=== PATIENT | female | born 1960 | race Caucasian/White ===

== ENCOUNTER → 2019-10-03 13:23 | Outpatient (CLI) | payer BC, SELFPAY ==
--- NOTE | ~2019-10-03 | MR_ITS ---
EXAMINATION: MR wrist LT wo con DATE: 10/03/2019 14:29 INDICATION: Dorsal ganglion cyst at the right wrist TECHNIQUE: Magnetic resonance imaging (MRI) of the right wrist was performed without intravenous cont rast. Sequences performed include axial PD-weighted FSE and PD-weighted FS FSE, coronal PD-weighted F S FSE and T1-weighted SE, and sagittal PD-weighted FS FSE and PD-weighted FSE. COMPARISON: Right wrist radiographs dated 03/07/2012 FINDINGS: Intrinsic ligaments: Tear of the scapholunate ligament including the dorsal and volar components with widening of the scap holunate interval. The lunotriquetral ligament is normal. Triangular fibrocartilage complex (TFCC): Partial tear of the dorsal radioulnar ligament. The volar radioulnar ligament and intervening fiber c artilaginous disc of the triangular fibrocartilage complex as well as its foveal and ulnar styloid at tachments are normal. The ulnar collateral ligament, ulnotriquetral ligament and meniscal homologue a re normal. The extensor carpi ulnaris tendon sheath is normal. Extensor wrist: Extensor tendons of the wrist are normal. Small amount of fluid surrounding the distal aspect of the extensor carpi radialis longus and brevis tendons consistent with mild tenosynovitis. Flexor wrist: The flexor tendons of the wrist are normal. No abnormality in the carpal tunnel with normal median n erve. Guyon's canal: Guyon's canal including the ulnar nerve and artery are normal. Bones/other: The marker indicating the region of concern overlies the carpal process resulting from a 9 x 9 x 5 mm os styloideum addition between the capitate and base of the third metacarpal. There is a 4 x 5 x 1.5 cm ganglion cyst situated on the proximal margin of the os styloid and deep to the extensor carpi ra dialis brevis tendon which is likely too small and deep to be palpable next to the larger os styloide um. There is moderate to severe osteoarthritis at the radioscaphoid articulation consistent with scap holunate advanced collapse (SLAC) wrist. Mild osteoarthritis at the first carpometacarpal joint with marrow edema within the trapezium. The prior small fracture fragment has healed along the dorsal lashell in of the triquetrum. There is prominent osteoarthritis related marrow edema and cystic change in the capitate which appears centered along the radial/volar margin along side the distal pole of the scap hoid and proximal margin of the trapezoid. IMPRESSION: 1. Carpal boss resulting from an os styloideum at the dorsal aspect of the third carpometacarpal join t which immediately underlies the marker indicating the region of concern. There is a very small gang lion cyst along the proximal margin of the os styloideum which is of doubtful significance. 2. 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 3. Partial tear of the volar radioulnar ligament. Remainder of the triangular fibrocartilage complex is normal. 4. Mild tenosynovitis along the distal aspect of the normal extensor carpi radialis longus and brevis tendons. Reviewed, dictated and finalized at location A. IMPRESSION: 1. Carpal boss resulting from an os styloideum at the dorsal aspect of the thir d carpometacarpal joint which immediately underlies the marker indicating the r egion of concern. There is a very small ganglion cyst along the proximal margin of the os styloideum which is of doubtful significance. 2. Likely chronic tear of the scapholunate ligament with secondary moderate to severe osteoarthritis at the radioscaphoid articulation consistent with scaphol unate advanced collapse (SLAC) wrist. 3. Partia
== END ==
PROVIDERS: Visit Provider Orthopaedic Surgery
DX: M67.432 Ganglion, left wrist (principal)
CPT/HCPCS: 73221

== ENCOUNTER 2020-05-21 16:01 | Emergency (ER) | payer BC, SELFPAY ==
--- NOTE | 2020-05-21 16:05 | ED.SKABFB ---
HPI - Skin/Abscess/Foreign Bdy General Chief complaint: Skin/Abscess/Foreign Body Stated complaint: pos spider bite Time Seen by Provider: 05/21/20 16:05 Source: patient and RN notes reviewed Mode of arrival: ambulatory Limitations: no limitations History of Present Illness HPI narrative: 59-year-old female presents to the [facility] with complaints of a wound to the left dorsal hand. States that it started as a white spot on Monday and has just become worse with swelling and the open area. Unable to remove rings from left 4th finger due to swelling. Unsure of injury but believes she was bit by a spider possibly Related Data Home Medications Medication Instructions Recorded Confirmed cetirizine 10 mg tablet 10 mg PO DAILY 12/24/18 05/21/20 levothyroxine 125 mcg tablet 125 mcg PO DAILY 12/24/18 05/21/20 methocarbamol 500 mg tablet 500 mg PO QID 12/24/18 05/21/20 Allergies Allergy/AdvReac Type Severity Reaction Status Date / Time guaifenesin Allergy Unknown Hyperactive Verified 05/21/20 16:07 phenylephrine Allergy Unknown Hyperactive Verified 05/21/20 16:07 phenylpropanolamine Allergy Unknown Hyperactive Verified 05/21/20 16:07 Review of Systems Review of Systems: Narrative: CONSTITUTIONAL: Denies fever, chills, or sweats. CARDIOVASCULAR: Denies chest pain, palpitations, or edema. RESPIRATORY: Denies cough or dyspnea. SKIN: Denies rash or itching. Open area dorsal aspect left hand MUSCULOSKELETAL: Denies back pain, joint pain, or myalgia. NEUROLOGIC: Denies headache, numbness, or weakness. PSYCHIATRIC: Denies anxiety or depression. All other systems reviewed are negative, except as documented in HPI. [facility] Past Medical History Medical History Abdominal spasms Acute Crohn's disease Allergies B12 deficiency BMI 27.0-27.9,adult Chronic allergic rhinitis Chronic headaches COPD (chronic obstructive pulmonary disease) GERD (gastroesophageal reflux disease) Low back pain with left-sided sciatica Post-surgical hypothyroidism Seasonal allergies Surgical History Surgical History H/O thyroidectomy (~2013) History of appendectomy (~1978) History of partial hysterectomy (~1996) Family History Family History Grandparent Diabetes mellitus Acute myocardial infarction Family history of dementia Mother Family history of malignant neoplasm of ovary Social History Social History Smoking status: Heavy tobacco smoker Alcohol intake: current Comments At the time of my signature, I reviewed and agree with the nursing past medical, surgical, social, and family history. There is no relevant family history pertinent to the patient complaint. Exam Narrative: Exam Narrative: GENERAL: This is a well-nourished, well-developed patient, in no apparent distress. NECK: Neck supple, non-tender without lymphadenopathy, masses or thyromegaly. CARDIOVASCULAR: Regular rate and rhythm without murmurs, gallops, or rubs. RESPIRATORY: Clear to auscultation. Breath sounds equal bilaterally. No wheezes, rales, or rhonchi. GASTROINTESTINAL: Abdomen soft, non-tender, nondistended. Bowel sounds are active. No hepato-splenomegaly, or palpable masses. No guarding. SKIN: warm, intact with no suspicious lesions or rash, good texture and turgor. Wound noted without drainage to the dorsal aspect left hand NEURO: awake, alert, and oriented to person, place and time. There were no obvious focal neurologic abnormalities. EXTREMITIES: No joint tenderness, effusion, or edema noted. BACK: Nontender without deformity. Extrem: Hand/finger images: 1. 1-1/2 x 1 cm open wound shaped like the #8 red beefy base. No drainage. Moderate swelling noted to the dorsal aspect of left hand with swelling of fingers 3 4 and 5. Course Vital Sig
[2020-05-21 16:10] VITALS: BP 138/94; PULSE 93; RESP 16; TEMP 36.7; O2SAT 98
== END 2020-05-21 16:35 | disposition home or self-care (01) ==
PROVIDERS: Emergency Provider Nurse Practitioner; PCP Family Medicine
DX: L03.114 Cellulitis of left upper limb (principal); S61.402A Unspecified open wound of left hand, initial encounter; X58.XXXA Exposure to other specified factors, initial encounter; F17.200 Nicotine dependence, unspecified, uncomplicated; J44.9 Chronic obstructive pulmonary disease, unspecified; K21.9 Gastro-esophageal reflux disease without esophagitis; E89.0 Postprocedural hypothyroidism
CPT/HCPCS: 99213; G0463

== ENCOUNTER → 2020-09-15 11:24 | Outpatient (CLI) | payer BC, SELFPAY ==
--- NOTE | ~2020-09-15 | XR_ITS ---
XR knee RT 3V DATE: 09/15/2020 11:43 INDICATION: Right knee pain. No injury. TECHNIQUE: 4 views COMPARISON: None FINDINGS: There is tricompartment osteoarthritis. There is moderately prominent loss of medial joint space height. There is periarticular spurring at all 3 compartments. No fracture or dislocation or joint effusion. No periosteal reaction or bone destruction. There is enthesopathy of the superior pole of the patella at the quadriceps tendon insertion. IMPRESSION: Tricompartment osteoarthritis Reviewed, dictated and finalized at location B.
== END ==
PROVIDERS: PCP Family Medicine; Visit Provider Nurse Practitioner Family
DX: M17.11 Unilateral primary osteoarthritis, right knee (principal)
CPT/HCPCS: 73562

== ENCOUNTER 2021-12-08 16:24 | Emergency (ER) | payer BC, SELFPAY ==
[2021-12-08 16:39] VITALS: BP 137/109; PULSE 92; RESP 16; TEMP 37.3; O2SAT 97
--- NOTE | 2021-12-08 16:58 | ED.ANIMALBIT ---
HPI - Animal Bite General Chief Complaint: Animal Bite Stated Complaint: CAT SCRATCH Time Seen by Provider: 12/08/21 16:59 Source: patient Mode of arrival: ambulatory Limitations: no limitations History of Present Illness HPI narrative: 61 y/o female presents to the for complaints of a cat scratch to her right wrist and forearm that happened 3 nights ago. She owns this cat and states that he was playing too rough. Patient states that she owns multiple animals and they are all up to date on their vaccinations. Reports wrist and forearm are painful, extremely itchy, and has some mild swelling. Reports decreased ROM to right wrist d/t swelling. Has treated wound with Betadine and Neosporin. Has taken Tylenol for pain. Related Data Home Medications Medication Instructions Recorded Confirmed topiramate 50 mg tablet 50 mg PO BID 04/22/21 12/08/21 levothyroxine 125 mcg tablet 125 mcg PO DAILY 06/07/21 12/08/21 (Synthroid) Allergies Allergy/AdvReac Type Severity Reaction Status Date / Time guaifenesin Allergy Unknown Hyperactive Verified 12/08/21 16:37 phenylephrine Allergy Unknown Hyperactive Verified 12/08/21 16:37 phenylpropanolamine Allergy Unknown Hyperactive Verified 12/08/21 16:37 Review of Systems Review of Systems: CONSTITUTIONAL: Denies body aches, fever, chills, or sweats. EYES: Denies visual changes, redness, or discharge. ENT: Denies rhinorrhea, congestion CARDIOVASCULAR: Denies chest pain, palpitations, or edema. RESPIRATORY: Denies cough or dyspnea. GASTROINTESTINAL: Denies abdominal pain, nausea, vomiting, or diarrhea. SKIN: Reports scratch with pain, redness, swelling, and extreme itching to right wrist and forearm. MUSCULOSKELETAL: Denies back pain, joint pain, or myalgia. NEUROLOGIC: Denies headache, numbness, tingling, or weakness. [facility] Past Medical History Medical History Abdominal spasms Acute Crohn's disease Allergies Arthritis B12 deficiency Level normal at 1056 with hemoglobin 15.1 10/30/2021. BMI 26.0-26.9,adult BMI 27.0-27.9,adult BMI 29.0-29.9,adult Cellulitis Chronic allergic rhinitis Chronic headaches Chronic pain of left wrist Collagenous colitis Contact dermatitis due to plant COPD (chronic obstructive pulmonary disease) Depression Encounter to establish care GERD (gastroesophageal reflux disease) Hyperthyroidism Low back pain with left-sided sciatica Post-surgical hypothyroidism Right knee DJD Right knee pain Seasonal allergies Wears glasses Weight gain, abnormal Wound infection Surgical History Surgical History H/O thyroidectomy (~2013) History of appendectomy (~1978) History of hand surgery 2020, Dr. Keller History of partial hysterectomy (~1996) History of rotator cuff surgery 2015, Dr. 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 Please see nursing chart for further information. There is no relevant family history pertinent
[2021-12-08] MEDS: TETANUS,DIPHTHERIA,AC PERTUSSIS ADULT (0.5 ML) BOOSTRIX IM (17:13)
== END 2021-12-08 17:24 | disposition home or self-care (01) ==
PROVIDERS: Emergency Provider Nurse Practitioner Family; PCP Family Medicine
DX: S51.851A Open bite of right forearm, initial encounter (principal); W55.01XA Bitten by cat, initial encounter; S50.811A Abrasion of right forearm, initial encounter; W55.03XA Scratched by cat, initial encounter; Z23 Encounter for immunization; F17.210 Nicotine dependence, cigarettes, uncomplicated; F17.290 Nicotine dependence, other tobacco product, uncomplicated; K50.90 Crohn's disease, unspecified, without complications; M19.90 Unspecified osteoarthritis, unspecified site; J44.9 Chronic obstructive pulmonary disease, unspecified; K21.9 Gastro-esophageal reflux disease without esophagitis; E05.90 Thyrotoxicosis, unspecified without thyrotoxic crisis or storm; M17.11 Unilateral primary osteoarthritis, right knee; Z90.711 Acquired absence of uterus with remaining cervical stump
CPT/HCPCS: 90471; 90715; 99213; G0463

== ENCOUNTER → 2021-12-21 10:46 | Outpatient (CLI) | payer BC, SELFPAY ==
--- NOTE | ~2021-12-21 | XR_ITS ---
XR wrist RT min 3V DATE: 12/21/2021 11:12 INDICATION: Right wrist pain TECHNIQUE: 4 views COMPARISON: 03/07/2012 right wrist FINDINGS: There is mild to moderate osteophyte is at first carpometacarpal joint. There is osteophyti c spurring at the interphalangeal joint of first digit. No fracture, dislocation, periosteal reaction or bone destruction, erosive change or chondrocalcinosi s of the wrist joint. IMPRESSION: Mild osteoarthritis Reviewed, dictated and finalized at location A. [employer] IMPRESSION: Mild osteoarthritis
== END ==
PROVIDERS: PCP Chiropractor; Visit Provider Chiropractor
DX: M19.031 Primary osteoarthritis, right wrist (principal)
CPT/HCPCS: 73110

== ENCOUNTER 2022-12-02 12:16 | Outpatient (CLI) | payer BC, SELFPAY ==
--- NOTE | 2022-12-02 12:27 | ECG_ITS ---
Measurements Intervals Sula Rate: 81 P: 80 CA: 134 QRS: 53 QRSD: 97 T: 55 QT: 390 QTc: 453 Interpretive Statements SINUS RHYTHM NO PREVIOUS ECG AVAILABLE FOR COMPARISON Electronically Signed On 12-02-2022 13:36:59 CDT by Tyler Ibanez MD
== END 2022-12-02 12:17 | disposition home or self-care (01) ==
LOC: ANHLAB 12:18
PROVIDERS: PCP Chiropractor; Visit Provider Family Medicine
DX: Z82.49 Family history of ischemic heart disease and other diseases of the circulatory system (principal)
CPT/HCPCS: 93005

== ENCOUNTER 2023-04-18 13:38 | Emergency (ER) | payer BC, SELFPAY ==
--- NOTE | ~2023-04-18 | XR_ITS ---
EXAMINATION: XR chest 2V DATE: 04/18/2023 14:21 INDICATION: Cough. TECHNIQUE: Frontal and lateral views of the chest were obtained. COMPARISON: None. FINDINGS: A calcified left lung nodule is consistent with old granulomatous disease. No pleural effus ion or pneumothorax. The heart size is normal. IMPRESSION: 1. No acute cardiopulmonary disease. Reviewed, dictated and finalized at location E. TER TACKER
--- NOTE | 2023-04-18 13:41 | ED.URI ---
HPI - URI/Sore Throat General Chief Complaint: Upper Respiratory Infection Stated Complaint: Flu Symptoms Source: patient and RN notes reviewed Mode of arrival: ambulatory Limitations: no limitations History of Present Illness HPI Narrative: Patient is a 62-year-old female who presents to the [facility] with complaints of cough and congestion since Monday. Patient endorses a frequent productive cough with brown sputum. She denies chest pain or shortness of breath. She reports ongoing nasal congestion and headaches. States that she has had generalized body aches and fatigue. She denies any known fever. Denies sore throat. States that her recently tested positive for influenza A. Patient's respirations are unlabored. She does not appear in any acute distress. Related Data Home Medications Medication Instructions Recorded Confirmed topiramate 50 mg tablet 50 mg PO BID 04/22/21 02/23/23 hyoscyamine sulfate 0.125 mg 0.125 mg sublingual QID PRN 05/23/22 02/23/23 sublingual tablet (Levsin/SL) abdominal pain hyoscyamine sulfate 0.375 mg 0.375 mg PO Q12H 05/23/22 02/23/23 tablet,extended release,12 hr (Levbid) levothyroxine 125 mcg tablet 125 mcg PO DAILY 05/23/22 02/23/23 (Synthroid) magnesium oxide 500 mg PO BID 05/23/22 02/23/23 Allergies Allergy/AdvReac Type Severity Reaction Status Date / Time guaifenesin Allergy Unknown Hyperactive Verified 04/18/23 13:40 phenylephrine Allergy Unknown Hyperactive Verified 04/18/23 13:40 phenylpropanolamine Allergy Unknown Hyperactive Verified 04/18/23 13:40 Review of Systems Review of Systems: CONSTITUTIONAL: Denies fever, chills, or sweats. Reports fatigue. EYES: Denies visual changes, redness, or discharge. ENT: Denies otalgia and sore throat. Reports nasal congestion. CARDIOVASCULAR: Denies chest pain, palpitations, or edema. RESPIRATORY: Reports cough but denies dyspnea. GASTROINTESTINAL: Denies abdominal pain, nausea, vomiting, or diarrhea. GENITOURINARY: Denies dysuria or hematuria. SKIN: Denies rash or itching. MUSCULOSKELETAL: Denies back pain, joint pain, but reports myalgia. NEUROLOGIC: reports headache but denies numbness or weakness. Pertinent positives per HPI. [facility] Past Medical History Medical History Abdominal spasms Acute Crohn's disease Allergies Arthritis B12 deficiency Level normal at 1056 with hemoglobin 15.1 10/30/2021. BMI 26.0-26.9,adult BMI 27.0-27.9,adult BMI 29.0-29.9,adult Cellulitis Chronic allergic rhinitis Chronic headaches Chronic pain of left wrist Collagenous colitis Contact dermatitis due to plant COPD (chronic obstructive pulmonary disease) Depression Eczema forearms Encounter to establish care Family history of long QT syndrome (~11/24/22) Normal EKG 12/02/2022. GERD (gastroesophageal reflux disease) Grieving (~10/05/22) daughter on 10/05/2022 of cardiac arrhythmia. Hyperthyroidism IBS (irritable bowel syndrome) Low back pain with left-sided sciatica Oral pharyngeal candidiasis Overweight (BMI 25.0-29.9) Post-surgical hypothyroidism Right knee DJD Right knee pain Seasonal allergies Wears glasses Weight gain, abnormal Wound infection Surgical History Surgical History H/O thyroidectomy (~2013) History of appendectomy (~1978) History of hand surgery 2020, Dr. Keller History of partial hysterectomy (~1996) History of rotator cuff surgery 2015, Dr. Leon Family History Family History Grandparent Diabetes mellitus Acute myocardial infarction Family history of dementia Mother Family history of malignant neoplasm of ovary Social History Social History Smoking packs per day: 1.5 Smoking cigarettes per day: 30.0 Years smoked: 45
[2023-04-18 13:50] VITALS: BP 102/81; PULSE 80; RESP 16; TEMP 37; O2SAT 97
== END 2023-04-18 14:38 | disposition home or self-care (01) ==
PROVIDERS: Emergency Provider Nurse Practitioner; PCP Family Medicine
DX: J20.9 Acute bronchitis, unspecified (principal); Z20.822 Contact with and (suspected) exposure to COVID-19; F17.210 Nicotine dependence, cigarettes, uncomplicated; F17.290 Nicotine dependence, other tobacco product, uncomplicated; K50.90 Crohn's disease, unspecified, without complications; J44.9 Chronic obstructive pulmonary disease, unspecified; K21.9 Gastro-esophageal reflux disease without esophagitis; M17.11 Unilateral primary osteoarthritis, right knee; E89.0 Postprocedural hypothyroidism
CPT/HCPCS: 71046; 87426; 87804; 99213; G0463

== ENCOUNTER 2023-06-11 08:16 | Emergency (ER) | payer BC, SELFPAY ==
[2023-06-11 08:26] VITALS: BP 105/68; PULSE 93; RESP 16; TEMP 37.3; O2SAT 97
--- NOTE | 2023-06-11 08:33 | ED.GENADULT ---
HPI - General Adult General Chief complaint: Upper Respiratory Infection Stated complaint: Sinus Infection Symptoms Time Seen by Provider: 06/11/23 08:34 Source: patient Mode of arrival: ambulatory Limitations: no limitations History of Present Illness HPI narrative: 62-year-old female patient presents to the [facility] with complaints of cold symptoms that started yesterday morning. Patient states she has had congestion runny nose low-grade fever of 99. Patient denies any coughing, chest pain or shortness of breath. Denies any ear pain. Patient states she has had a sore throat and states that the roof of her mouth sore. Denies any abdominal pain, nausea, vomiting or diarrhea. patient states she has taken some [id number] Tylenol cold and flu for her symptoms And NyQuil. Related Data Home Medications Medication Instructions Recorded Confirmed topiramate 50 mg tablet 50 mg PO BID 04/22/21 06/11/23 levothyroxine 125 mcg tablet 125 mcg PO DAILY 05/23/22 06/11/23 (Synthroid) magnesium oxide 500 mg PO BID 05/23/22 06/11/23 Allergies Allergy/AdvReac Type Severity Reaction Status Date / Time guaifenesin Allergy Unknown Hyperactive Verified 06/11/23 08:32 phenylephrine Allergy Unknown Hyperactive Verified 06/11/23 08:32 phenylpropanolamine Allergy Unknown Hyperactive Verified 06/11/23 08:32 Review of Systems Review of Systems: CONSTITUTIONAL: Positive subjective low-grade fever, denies chills, or sweats. EYES: Denies visual changes, redness, or discharge. ENT: positive rhinorrhea, congestion, sore throat, denies otalgia. CARDIOVASCULAR: Denies chest pain, palpitations, or edema. RESPIRATORY: Denies cough or dyspnea. GASTROINTESTINAL: Denies abdominal pain, nausea, vomiting, or diarrhea. GENITOURINARY: Denies dysuria or hematuria. SKIN: Denies rash or itching. MUSCULOSKELETAL: Denies back pain, joint pain, or myalgia. NEUROLOGIC: Denies headache, numbness, or weakness. PSYCHIATRIC: Denies anxiety or depression. [facility] Past Medical History Medical History Abdominal spasms Acute Crohn's disease Allergies Arthritis B12 deficiency Level normal at 1056 with hemoglobin 15.1 10/30/2021. BMI 26.0-26.9,adult BMI 27.0-27.9,adult BMI 29.0-29.9,adult Cellulitis Chronic allergic rhinitis Chronic headaches Chronic pain of left wrist Collagenous colitis Contact dermatitis due to plant COPD (chronic obstructive pulmonary disease) Depression Eczema forearms Encounter to establish care Family history of long QT syndrome (~11/24/22) Normal EKG 12/02/2022. GERD (gastroesophageal reflux disease) Grieving (~10/05/22) daughter on 10/05/2022 of cardiac arrhythmia. Hyperthyroidism IBS (irritable bowel syndrome) Low back pain with left-sided sciatica Oral pharyngeal candidiasis Overweight (BMI 25.0-29.9) Post-surgical hypothyroidism Right knee DJD Right knee pain Seasonal allergies Wears glasses Weight gain, abnormal Wound infection Surgical History Surgical History H/O thyroidectomy (~2013) History of appendectomy (~1978) History of hand surgery 2020, Dr. Keller History of partial hysterectomy (~1996) History of rotator cuff surgery 2015, Dr. Leon Family History Family History Grandparent Diabetes mellitus Acute myocardial infarction Family history of dementia Mother Family history of malignant neoplasm of ovary Social History Social History Smoking packs per day: 1.5 Smoking cigarettes per day: 30.0 Years smoked: 45 Smoking pack-years: 67.50 Smoking status: Current every day smoker Tobacco type: cigarettes and e-cigarettes/vaping Additional smoking assessment comments: 1-1.5 packs a day for 45 years Alcohol intake: current Substa
== END 2023-06-11 08:51 | disposition home or self-care (01) ==
PROVIDERS: Emergency Provider Nurse Practitioner Family; PCP Family Medicine
DX: J06.9 Acute upper respiratory infection, unspecified (principal); F17.210 Nicotine dependence, cigarettes, uncomplicated; F17.290 Nicotine dependence, other tobacco product, uncomplicated; K50.90 Crohn's disease, unspecified, without complications; M19.90 Unspecified osteoarthritis, unspecified site; J44.9 Chronic obstructive pulmonary disease, unspecified; K21.9 Gastro-esophageal reflux disease without esophagitis; E89.0 Postprocedural hypothyroidism; Z90.711 Acquired absence of uterus with remaining cervical stump
CPT/HCPCS: 87081; 87426; 87804; 87880; 99213; G0463

== ENCOUNTER 2024-02-13 11:19 | Outpatient (CLI) | payer OTHER, SELFPAY ==
--- NOTE | ~2024-02-13 | MR_ITS ---
EXAMINATION: MR knee LT wo con DATE: 02/13/2024 12:12 INDICATION: medial meniscus tear. medial left knee pain since 06/2023 TECHNIQUE: Magnetic resonance imaging (MRI) of the left knee was performed without intravenous contra st. Sequences included axial PD-weighted FS FSE, coronal PD-weighted FSE and PD-weighted FS FSE, sagi ttal PD-weighted FSE, and sagittal T2-weighted FS FSE. COMPARISON: None. FINDINGS: Medial compartment: Vertically oriented tear of the posterior horn, near the root ligament. Moderate diffuse cartilage th inning. Mild osteophytosis. Lateral compartment: Meniscus intact. Diffuse cartilage thinning, moderate over the lateral femoral condyle. Mild osteophy tosis. Patellofemoral compartment: Retinacula intact. Mild osteophytosis. Moderate diffuse cartilage thinning including focal areas of n ear full-thickness loss along the medial facet and median ridge. Ligaments and tendons: The ACL, PCL, MCL, and LCL are intact. Remaining flexor and extensor tendons are intact. Fluid: Small volume joint fluid. Moderate-sized Zhang's cyst. Osseous/other: No suspicious focal or diffuse marrow signal. IMPRESSION: Vertical tear of the posterior horn, medial meniscus. Moderate tricompartmental osteoarthritis. Moderate Zhang's cyst. Reviewed, dictated and finalized at location K. 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
== END 2024-02-13 11:20 | disposition home or self-care (01) ==
LOC: MICIMG 11:19
PROVIDERS: PCP Family Medicine; Visit Provider Orthopaedic Surgery
DX: S83.242A Other tear of medial meniscus, current injury, left knee, initial encounter (principal); M17.12 Unilateral primary osteoarthritis, left knee; M71.22 Synovial cyst of popliteal space [Baker], left knee; X58.XXXA Exposure to other specified factors, initial encounter
CPT/HCPCS: 73721

== ENCOUNTER 2024-06-08 08:47 | Outpatient (CLI) | payer OTHER, SELFPAY ==
--- OUTSIDE RECORDS SUMMARY | 2024-06-08 08:51 | XMS_ITS | Clinical Summary ---
Author Organization [facility] Address [address] [place] [id number] Care Team Providers Care Pediatric Licensed Practical Nurse Name Role Phone Peter Velazquez MD Primary Care Provider [phone] Allergies Active Allergy Reactions Criticality Noted Date Comments Guaifenesin Phenylephrine Phenylpropanolamine Medications levothyroxine (SYNTHROID) 137 mcg tablet take 1 tablet by oral route every day 0 0 6 Active Additional Information Patient taking differently: 125 mcg, Reported on 12/22/2022 venlafaxine (EFFEXOR) 75 mg tablet take 1 tablet by oral route 2 times every day with food 0 0 6 Active Additional Information Patient not taking.Reported on 12/13/2022 valACYclovir (VALTREX) 500 mg tablet take 1 tablet by oral route every day 0 0 6 Active omeprazole (PriLOSEC) 20 mg capsule take 1 capsule by oral route every day before a meal 0 0 6 Active docusate sodium (COLACE) 100 mg capsule take 1 capsule (100MG) by oral route every day at bedtime as needed 30 0 6 Active Additional Information Patient not taking.Reported on 12/13/[address] (VOLTAREN) 75 mg EC tablet take 1 tablet by oral route 2 times every day with food 60 2 7 Active Additional Information Patient not taking.Reported on 12/13/2022 atorvastatin (LIPITOR) 80 mg tablet Take 1 tablet (80 mg total) by mouth daily Active methocarbamoL (ROBAXIN) 500 mg tablet Take 1 tablet (500 mg total) by mouth as needed for muscle spasms Active hyoscyamine (OSCIMIN) 0.125 mgIndications:Ur inary Incontinence Take 1 tablet (0.125 mg total) by mouth every 4 (four) hours as needed for cramping Active meloxicam (MOBIC) 15 mg tablet Take 1 tablet (15 mg total) by mouth daily Active traMADoL (ULTRAM) 50 mg tablet Take 1 tablet (50 mg total) by mouth 2 (two) times a day Active topiramate (TOPAMAX) 50 mg tablet Take 1 tablet (50 mg total) by mouth 2 (two) times a day Active diphenoxylate-at ropine (LOMOTIL) 2.5-0.025 mg per tabletIndication s:diarrhea Take 1 tablet by mouth 4 (four) times a day as needed for diarrhea Active prochlorperazine (COMPAZINE) 5 mg tablet Take 1 tablet (5 mg total) by mouth every 6 (six) hours as needed for nausea or vomiting Active budesonide EC (ENTOCORT EC) 3 mg 24 hr capsule Take 3 capsules (9 mg total) by mouth every morning Active Active Problems No known active problems Surgical History Surgery Date Site/Laterality Comments VAGINAL HYSTERECTOMY Hysterectomy, vaginal THYROIDECTOMY Thyroidectomy APPENDECTOMY Appendectomy OTHER SURGICAL HISTORY Shoulder- left 09/23/15 Medical History Medical History Date Comments Hyperlipidemia Hyperlipidemia; Comments: APO 07/17/2015 - Hx Other Medical Back pain; Comm ents: APO 07/17/2015 - Disorder of thyroid Thyroid dise ase Family History Medical History Relation Name Comments Arthritis Other Family history of Arthritis; Cancer Other Family history of Cancer, unknown; Diabetes type II Other Family hist ory of Diabetes mellitus type 2; Heart disease Other Family history of Heart problems; Hypertension Other Family history of Hypertension; Lung disease Other Family history of Lung problems; Relation Name Status Comments Other Social History Tobacco Use Types Packs/Day Years Used Date Smoking Tobacco: Every Day Cigarettes 0.1 15 Tobacco Cessation:Ready to Q uit: Not Asked; Counseling Given: Not Answered Comments Unknown Sex and Gender Information Value Date Recorded Sex Assigned at Not on file Legal Sex Female 4:18 AM ALMOND PASTE MIXER Gender Identity Not on file Sexual Orientation Not on file Obstetrics History Last Filed Vital Signs Vital Sign Reading Time Taken Comments Blood Pressure 113/77 01/18/2023 1:02 PM ALMOND PASTE MIXER Pulse 86 12/22/2022 8:21 AM ALMOND PASTE MIXER Temperature - - Respiratory Rate 16 12/22/2022 8:21 AM ALMOND PASTE MIXER Oxygen Saturation 96% 12/13/2022 9:13 AM CDT Inhaled Oxygen Concentration - - Weight 70.3 kg (155 lb) 12/22/2022 8:21 AM ALMOND PASTE MIXER Height 162.6 cm (5' 4 ) 12/22/2022 8:21 AM ALMOND PASTE MIXER Body Mass Index 26.61 12/22/2022 8:21 AM ALMOND PASTE MIXER Plan of Treatment Health Maintenance Due Date Last Done Comments Breast Cancer Screening-Mammogram 1962 Cervical Cancer Screening 1962 Colon Cancer Screening-Colonoscopy 1962 Depression Screening 1962 Hepatitis C Screening 1962 Hepatitis B Screening 1980 Regular Well Visit/Exam 18-64 1980 Pneumococcal vaccine <65 (1 of 2 - PCV) 1981 05/14/2008 Covid-19 Vaccine (2 - season) 10/15/202306/2020 Influenza Vaccine (#1) 2023 3, 12/05/2011, 12/08/2009 DTaP/Tdap/Td Vaccine (3 - Td or Tdap) 12/09/2031, 10/11/2010 Zoster Vaccine Completed 07/01/2022, 03/01/2022 Insurance [facility] Care Teams Pediatric Licensed Practical Nurse Relationship Specialty Start Date End Date Peter Velazquez MD [address] [address] [facility] - General 05/13/16
--- OUTSIDE RECORDS SUMMARY | 2024-06-08 08:51 | XMS_ITS | Continuity of Care Document ---
Author Organization [facility] Address [address] [place] [address] [address] [place] [address] Phone Care Team Providers Care Medical Cost Consultant Name Role Phone Doisy, Edward Unavailable Unavailable Advance Directives Directive Yes / No Effective Date File Name No Information Encounters Encounter Description Practice Location Reason(s) For Visit Diagnoses Date Provider Providers Copied on Encounter [facility], [address], [place], [place], [id number], [place] tel:[phone] [facility] No Information [address] Edward. [address] , [address], [place], [address], [place]. tel:[phone] Family History Family Member Type Diagnosis Age At Onset No Information Payers Payer name Insurance type Covered libertarian ID Authoriza tion(s) No Information Social History Type Description Quantity Date Captured Comments Sex Female Smoking Status No Information Chief Complaint And Reason For Visit No Information Reason For Referral Reason For Referral No Information History Of Present Illness Encounter Date Complaint History Of Prese nt Illness No Information Functional Status Date Functional Assessmen t No Information Instructions Date Instruction Additional Infor mation No Information Assessments Type Assessment Date No Information Patient Care Teams Name Effective Dates (start - stop) Status Members No Information
--- OUTSIDE RECORDS SUMMARY | 2024-06-08 08:52 | XMS_ITS | Continuity of Care Document ---
Author Organization [facility] Address [address] [place] [address] Phone Care Team Providers Care Tube Bender Hand Name Role Phone Saúl Peres MD Unavailable Unavailable Allergies, Adverse Reactions, Alerts Substance Reaction Status Criticality PHENYLPROPANOLAMINE HCL Active No I nformation PHENYLEPHRINE HCL Active No Informa tion guaifenesin Active No Information WARNIN allergy(ies) could not be collected because the type is not supported. Please contact the source practice for further details. Procedures Procedure Date Medical Testimony Deposition X-ray exam shoulder minimum 2 views Independent Medical Examination TAY Pre Payment Advance Directives Directive Yes / No Effective Date File Name No Information Encounters Encounter Description Practice Location Reason(s) For Visit Diagnoses Date Provider Providers Copied on Encounter [facility], [address] [place] [address], [id number], tel:[phone] [facility] No Information [address]. [address], [address], [place], [place], [id number] , [place]. tel: [phone] Independent Medical Examination TAY [facility], [address] [place] [address], [id number], tel:[phone] [facility] left shoulder (chief complaint) Pain in left shoulder [address] Ja [address]. [address], [address], [place], [place], [id number] , [place]. tel: [phone] [facility], [address], [id number], tel:[phone] [facility] No Information [address]. [address], [address], [place], [place], [id number] , [place]. tel: [phone] Family History Family Member Type Diagnosis Age At Onset Problem (finding) Family history of Cance r, unknown Problem (finding) Family history of Diabe jamir mellitus Problem (finding) Family history of Cardi ovascular disease Payers Payer name Insurance type Covered libertarian ID Authoriza tion(s) No Information Social History Type Description Quantity Date Captured Comments Sex Female Smoking Status No Information Chief Complaint And Reason For Visit No Information Reason For Referral Reason For Referral No Information Plan Of Treatment Date Type Action Status Referral Ordered: X-ray exam shoulder minimum 2 views LT ordered History Of Present Illness Encounter Date Complaint History Of Prese nt Illness left shoulder Allyson courtney ts to the office for left shoulder complaints. Functional Status Date Functional Assessmen t No Information Instructions Date Instruction Additional Infor mation No Information Assessments Type Assessment Date No Information Patient Care Teams Name Effective Dates (start - stop) Status Members No Information
--- OUTSIDE RECORDS SUMMARY | 2024-06-08 08:52 | XMS_ITS | Clinical Summary ---
Author Organization [facility] Address [address] [place] [address] Care Team Providers Care Commercial Energy Auditor Name Role Phone Unavailable Primary Care Provider Unavailabl e Source Comments [facility],non-owned Affiliates and Associated Physician Practices is amultiple site organization consisting of ambulatory clinics and hospital sitesin [place], [place], [place] and [place]. This disclosure is being madepursuant to the Care Everywhere program and may not contain all information available regarding this patient. Last updated 17.[facility] Allergies Active Allergy Reactions Criticality Noted Date Comments Entex La 02/20/2017 Medications * Be aware that medications may not be up to date on this document. Alwaysverify current medications with the patient. Omeprazole (PRILOSEC PO) Active Atorvastatin Calcium (LIPITOR PO) Active DICLOFENAC PO Active LEVOTHYROXINE SODIUM PO Active TRAMADOL HCL PO Acti ve ValACYclovir HCl (VALTREX PO) Active DICYCLOMINE HCL PO A ctive Methocarbamol (ROBAXIN PO) Active BUDESONIDE-FORMOTE ROL FUMARATE IN Acti ve Albuterol Sulfate 108 (90 BASE) MCG/ACT Active Social History Tobacco Use Types Packs/Day Years Used Date Smoking Tobacco: Every Day Smokeless Tobacco: Never Comments No Sex and Gender Information Value Date Recorded Sex Assigned at Not on file Legal Sex Female 6:52 PM ACTIVITY SPECIALIST Gender Identity Not on file Sexual Orientation Not on file Last Filed Vital Signs Vital Sign Reading Time Taken Comments Blood Pressure 110/68 02/20/2017 10:18 AM ACTIVITY SPECIALIST Pulse 90 02/20/2017 10:18 AM ACTIVITY SPECIALIST Temperature 36.9 C (98.4 F) 02/20/2017 10:18 AM ACTIVITY SPECIALIST Respiratory Rate 16 02/20/2017 10:18 AM ACTIVITY SPECIALIST Oxygen Saturation 96% 02/20/2017 10:18 AM ACTIVITY SPECIALIST Inhaled Oxygen Concentration - - Weight 68 kg (150 lb) 02/20/2017 10:18 AM ACTIVITY SPECIALIST Height 162.6 cm (5' 4 ) 02/20/2017 10:18 AM ACTIVITY SPECIALIST Body Mass Index 25.75 02/20/2017 10:18 AM ACTIVITY SPECIALIST Plan of Treatment Health Maintenance Due Date Last Done Comments COLOGUARD (AGES 45-75) - COL ON CA SCREENING 1962 COLON MONITORING 1962 COLONOSCOPY - COLON CA SCREENING 1962 CT COLONOGRAPHY - COLON CA SCREENING 1962 Colorectal Cancer Screening 1962 FIT - COLON CA SCREENING 1962 FLEX SIG - COLON CA SCREENING 1962 MAMMOGRAM 1962 HIV SCREENING 1977 HEPATITIS C SCREENING 07/02/1980 DTAP/TDAP/TD VACCINES (1 - Tdap) 1981 PNEUMOCOCCAL VACCINE 50+ (1 of 1 - PCV) 2012 ZOSTER VACCINE (1 of 2) 2012 SCREENING FOR DIABETES 02/20/2017 COVID-19 VACCINE (1 - 2023-2 5 season) 2023 DEPRESSION SCREENING 02/14/2024 INFLUENZA VACCINE (Season Ended) 2024 Respiratory Syncytial Virus (RSV) Vaccine Pt: or over 60 yrs (1 - 1-dose 75+ series) 2037 HEPATITIS B VACCINE Aged Out No longe r eligible based on patient's age to complete this topic HIB VACCINE Aged Out No longer eligi ble based on patient's age to complete this topic HPV VACCINE Aged Out No longer eligi ble based on patient's age to complete this topic MENINGOCOCCAL (Group B) VACC INE SHARED DECISION-MAKING Aged Out No longer eligibl e based on patient's age to complete this topic MENINGOCOCCAL GROUPS A/C/Y/W VACCINE Aged Out No longer eligible b ased on patient's age to complete this topic Insurance [facility]
--- OUTSIDE RECORDS SUMMARY | 2024-06-08 08:52 | XMS_ITS | Referral Summary ---
Author Organization [facility] Address [address] [place] [address] Care Team Providers Care Bander Operator Name Role Phone Peter Velazquez MD Primary Care Provider [phone] Allergies Active Allergy Reactions Criticality Noted Date [...] Active Active Problems No known active problems Social History Tobacco Use Types Packs/Day Years Used Date Smoking Tobacco: Every Day Cigarettes 0.1 15 Tobacco Cessation:Ready to Q uit: Not Asked; Counseling Given: Not Answered Comments Unknown Sex and Gender Information Value Date Recorded Sex Assigned at Not on file Legal Sex Female 4:18 AM YOUTH PASTOR Gender Identity Not on file Sexual Orientation Not on file Last Filed Vital Signs Vital Sign Reading Time Taken Comments Blood Pressure 113/77 01/18/2023 1:02 PM YOUTH PASTOR Pulse 86 12/22/2022 8:21 AM YOUTH PASTOR Temperature - - Respiratory Rate 16 12/22/2022 8:21 AM YOUTH PASTOR Oxygen Saturation 96% 12/13/2022 9:13 AM CDT Inhaled Oxygen Concentration - - Weight 70.3 kg (155 lb) 12/22/2022 8:21 AM YOUTH PASTOR Height 162.6 cm (5' 4 ) 12/22/2022 8:21 AM YOUTH PASTOR Body Mass Index 26.61 12/22/2022 8:21 AM YOUTH PASTOR Plan of Treatment Not on file Insurance [employer] [place] Care Teams Bander Operator Relationship Specialty Start Date End Date Peter Velazquez MD [address] [address] PCP - General 05/13/16
--- NOTE | 2024-06-08 08:55 | ECG_ITS ---
Test Date: 2024-06-08 09:06:40 Measurements Intervals Connelly Rate: 71 P: 152 AK: 143 QRS: -11 QRSD: 94 T: 150 QT: 399 QTc: 435 Interpretive Statements SINUS RHYTHM LIMB LEAD REVERSAL POSSIBLE LEFT ATRIAL ENLARGEMENT LOW QRS VOLTAGE- DIFFUSE LEADS BORDERLINE T WAVE ABNORMALITY- INFERIOR LEADS BORDERLINE ECG No previous ECG available for comparison Electronically Signed On 06-08-2024 12:54:35 CDT by Anshul Knowles D.O.
== END 2024-06-08 08:48 | disposition home or self-care (01) ==
LOC: ANHLAB 08:50 → ANHCARD 08:50
PROVIDERS: PCP Family Medicine; Visit Provider Anesthesiology
DX: E78.5 Hyperlipidemia, unspecified (principal); R94.31 Abnormal electrocardiogram [ECG] [EKG]
CPT/HCPCS: 93005

== ENCOUNTER 2024-06-17 02:30 | Day surgery (SDC) | payer OTHER, SELFPAY ==
[2024-06-04 13:38] VITALS: BMI 27.0
--- NOTE | 2024-06-04 13:40 | PC.NURSE ---
Report to the Outpatient Waiting Room, entrance under the green pavilion located off [facility], at time __0800__ on date ___06/17/24___. Planned Procedure Time: ___1000___.? Time changes happen often and if your time is changed the preop area will call you the afternoon before. - You and your visitor will be asked to self-screen and do not enter if you have any COVID symptoms. Please call surgeon if you need to reschedule. - A mask is optional within the hospital at this time. Patients may have clear liquids (water, carbonated beverages, clear teas, apple juice) until 3 hours prior to surgery with a maximum of 20 ounces. - No food from midnight until time of surgery and no smoking, or chewing tobacco (or any form of nicotine). No chewing gum, candy or mints. Take only the following medications with a SIP of water on the morning of surgery: __albuterol as needed, levothyroxine, topiramate, tramadol, valacyclovir___ DO NOT STOP ANY OF YOUR OTHER PRESCRIPTION MEDICATIONS PRIOR TO SURGERY EXCEPT THE FOLLOWING Hold all vitamins and supplements for 3 days per anesthesiologist. Please no make-up, nail wolof, hairspray, perfume, deodorant, or body powder the day of surgery.? No jewelry (including any body piercings) or valuables the day of surgery, leave them at home.? Please take a shower or bath the night before, or the morning of, surgery with an antibacterial soap.? Wear comfortable, loose fitting clothing.? - Jewelry must be removed prior to entering the operating room.? Rings and piercings that are not removed may be cut off. - The hospital will not accept responsibility for valuables.? - Please leave all valuables, including medications, at home the day of surgery. If you are going home after surgery, a licensed team cdl driver must drive you home.? - NO public transportation without another adult if you receive anesthesia. - We recommend that an adult stay with you for 24 hours following discharge. - We also recommend that you do not drive, make important decision, drink alcoholic beverages, or take any drugs that were not prescribed by your health care provider for at least 24 hours after your discharge time. Follow any additional instructions given to you from your surgeon. Telephone instructions given to ____Allyson___and asked if any additional questions and then verbalized understanding. Patient advised to call surgeon office or pre surgery nurse liaison [phone] if any additional questions.
--- NOTE | 2024-06-13 07:29 | P.HP_ITS ---
H&P: HPI History of Present Illness Date/Time: 06/13/24 07:29 Chief Complaint: Patient is knee pain left. She has catching and locking mechanical type symptoms. Her MRI demonstrates meniscal tear. She failed conservative treatment like to proceed with arthroscopic intervention. I discussed this with her in detail risks benefits limitations and alternatives. Will proceed per her request. 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 Urinary frequency Chronic pain of left knee (~06/2023) degenerative changes on x-ray and Zhang cyst on ultrasound November,. Elevated liver enzymes AST 28, ALT slightly elevated at 43 on 06/24/2023. 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 Family history of long QT syndrome (~11/24/22) Normal EKG 12/02/2022. Overweight (BMI 25.0-29.9) IBS (irritable bowel syndrome) Eczema forearms Weight gain, abnormal Contact dermatitis due to plant Arthritis Hyperthyroidism Wears glasses Collagenous colitis Chronic pain of left wrist BMI 26.0-26.9,adult Right knee DJD Depression Right knee pain Encounter to establish care BMI 29.0-29.9,adult Wound infection Cellulitis BMI 27.0-27.9,adult Chronic allergic rhinitis B12 deficiency Level normal at 1056 with hemoglobin 15.1 10/30/2021. Level normal at 1202 with hemoglobin 15.4 on 06/24/2023. Low back pain with left-sided sciatica GERD (gastroesophageal reflux disease) Post-surgical hypothyroidism Abdominal spasms Seasonal allergies Acute Crohn's disease Chronic headaches COPD (chronic obstructive pulmonary disease) Allergies Surgical History Surgical History History of rotator cuff surgery 2016, Dr. Leon History of hand surgery 2020, Dr. Keller H/O thyroidectomy (~2013) History of partial hysterectomy (~1996) History of appendectomy (~1978) Family History Family History Grandparent Diabetes mellitus Acute myocardial infarction Family history of dementia Mother Family history of malignant neoplasm of ovary Social History Social History Smoking packs per day: 1.5 Smoking cigarettes per day: 30.0 Years smoked: 48 Smoking pack-years: 72.00 Smoking status: Current every day smoker Tobacco type: cigarettes Additional smoking assessment comments: 1-1.5 packs a day for 45 years Alcohol intake: current Substance use: never Substance use type: does not use Do You Feel Safe in your Home?: Yes Lack of Transportation: No Lack of Food: Never True Current Housing: I Have Housing Concerned About Future Housing: No Difficulty Paying Gas/Electric Bills: No Difficulty Paying for Meds: No Currently Unemployed: No Education: High School Diploma/GED Difficulty w/ Childcare or Family Care: No Living arrangements: with family Occupation/Education: occupation 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[employer] Gender identity (if verbalized by the patient): Female Meds Home Medications and Allergies Home Medications ?Medication ?Instructions ?Recorded ?Confirmed ?Type albuterol sulfate 90 mcg/actuation 2 puff inhalation Q4H PRN 07/16/19 06/04/24 Rx aerosol inhaler (Ventolin HFA) shortness of breath or wheezing #54 grams topiramate 50 mg tablet 50 mg PO BID 04/22/21 06/04/24 History levothyroxine 125 mcg tablet 125 mcg PO DAILY 05/23/22 06/04/24 History (Synthroid) magnesium oxide 500 mg PO BID 05/23/22 06/04/24 History valacyclovir 500 mg tablet See Rx Instructions .Route 09/06/23 06/04/24 Rx .COMPLEX #30 tabs atorvastatin 80 mg tablet 80 mg PO DAILY #30 tabs 10/24/23 06/04/24 Rx tramadol 50 mg tablet 50 mg PO Q6H PRN low back pain #60 11/23/23 06/04/24 Rx tabs omeprazole 20 mg capsule,delayed 20 mg PO BID 90 days #180 caps 01/08/24 06/04/24 Rx release fluticasone 250 mcg-salmeterol 50 1 inh inhalation BID 01/17/24 06/04/24 History mcg/dose blistr powdr for inhalation (Wixela Inhub) azelastine 137 mcg (0.1 %) nasal 1 spray intranasal DAILY PRN PRN 03/01/24 06/04/24 History spray baclofen 10 mg tablet 10 mg PO BID PRN muscle pain #60 05/13/24 06/04/24 Rx tabs hyoscyamine 0.15 mg tablet 0.15 mg PO DAILY 06/04/24 06/04/24 History Allergies Allergy/AdvReac Type Severity Reaction Status Date / Time guaifenesin (From Entex LA) AdvReac Mild Hyperactive Verified 06/04/24 13:51 ibuprofen AdvReac Mild Other Verified 06/04/24 13:15 phenylephrine (From Entex LA) AdvReac Mild Hyperactive Verified 06/04/24 13:51 phenylpropanolamine (From AdvReac Mild Hyperactive Verified 06/04/24 13:51 Entex LA) Exam 2 Narrative: On exam she has catching locking and pain with mechanical symptoms of her left knee. She has pain to palpation manipulation. This interferes with ability to walk. Neurologically she appears to be grossly intact. Eyes: General: appearance normal, both eyes and all related structures Neck: Neck: supple Resp: Effort & Inspection: normal respiratory effort Cardio: Rate: regular rate Rhythm: regular rhythm Radiology Reports: Comments: Magnetic Resonance Report Signed Patient: Allyson Holcomb EXAMINATION: MR knee LT wo con DATE: 02/13/2024 12:12 INDICATION: medial meniscus tear. medial left knee pain since 06/2023 TECHNIQUE: Magnetic resonance imaging (MRI) of the left knee was performed without intravenous contrast. Sequences included axial PD-weighted FS FSE, coronal PD-weighted FSE and PD-weighted FS FSE, sagittal PD-weighted FSE, and sagittal T2-weighted FS FSE. COMPARISON: None. FINDINGS: Medial compartment: Vertically oriented tear of the posterior horn, near the root ligament. Moderate diffuse cartilage thinning. Mild osteophytosis. Lateral compartment: Meniscus intact. Diffuse cartilage thinning, moderate over the lateral femoral condyle. Mild osteophytosis. Patellofemoral compartment: Retinacula intact. Mild osteophytosis. Moderate diffuse cartilage thinning including focal areas of near full-thickness loss along the medial facet and median ridge. Ligaments and tendons: The ACL, PCL, MCL, and LCL are intact. Remaining flexor and extensor tendons are intact. Fluid: Small volume joint fluid. Moderate-sized Zhang's cyst. Osseous/other: No suspicious focal or diffuse marrow signal. IMPRESSION: Vertical tear of the posterior horn, medial meniscus. Moderate tricompartmental osteoarthritis. Moderate Zhang's cyst. Reviewed, dictated and finalized at location [facility] Knee X-Ray 04/16/24 Knee MRI 02/14/24 Wrist X-Ray 12/21/21 Wrist MRI 10/03/19 Orthopedics Result Report 04/16/24 Cervical Spine X-Ray 03/01/24 Lumbar Spine X-Ray 03/01/24 Assessment and Plan Assessment and plan (1) Acute medial meniscus tear of left knee: Code(s): S83.242A - Other tear of medial meniscus, current injury, left knee, initial encounter Status: Acute Assessment and Plan: Patient is knee pain left. She has a medial meniscal tear with catching locking mechanical symptoms. She has failed conservative treatment I would like to proceed with arthroscopic intervention. I discussed risks, benefits, limitations, at and alternatives with the patient in detail will proceed with arthroscopy partial meniscectomy proceed as indicated. She understands and agrees.
[2024-06-17] VITALS (7 sets, daily range): BP systolic 95–141; BP diastolic 62–79; PULSE 63–85; RESP 12–15; TEMP 36.5–36.8; O2SAT 95–98; BMI 27.2
--- OUTSIDE RECORDS SUMMARY | 2024-06-17 02:34 | XMS_ITS | Continuity of Care Document ---
Author Organization [facility] Address [id number] [place] [address] [address] [place] [address] Phone Care Team Providers Care Database Developer Name Role Phone Doisy, Edward Unavailable Unavailable Advance Directives Directive Yes / No Effective Date File Name No Information Encounters Encounter Description Practice Location Reason(s) For Visit Diagnoses Date Provider Providers Copied on Encounter [facility], [address], [place], [place], [id number], [place] tel:[phone] [facility] No Information 8-200 4 Doisy Edward. [address] , [address], [place], [address], [place]. tel:[phone] Family History Family Member Type Diagnosis Age At Onset No Information Payers Payer name Insurance type Covered constitution party ID Authoriza tion(s) No Information Social History [...]
--- OUTSIDE RECORDS SUMMARY | 2024-06-17 02:34 | XMS_ITS | Continuity of Care Document ---
Author Organization [facility] Address [address] [place] [address] Phone Care Team Providers Care Emt/Dispatcher Name Role Phone Saúl Peres MD Unavailable [...] Date Provider Providers Copied on Encounter [facility], [address] [place] [address], [id number], tel:[phone] [facility] No Information 0 Ja Hays. [address], [address], [place], [place], [id number] , [place]. tel: [phone] Independent Medical Examination TAY [facility], [address] [place] [address], [id number], tel:[phone] [facility] left shoulder (chief complaint) Pain in left shoulder 9 Ja Hays. [address] [facility] [address], [address], [place], [place], [id number] , [place]. tel: [phone] [facility], [address], [id number], tel:[phone] [facility] No Information 9 Ja Hays. [address] [facility] [address], [address], [place], [place], [id number] , [place]. tel: [phone] Family History Family Member Type Diagnosis Age At Onset Problem (finding) Family history of Cance r, unknown Problem (finding) Family history of Diabe jamir mellitus Problem (finding) Family history of Cardi ovascular disease Payers Payer name Insurance type Covered republican ID Authoriza tion(s) No Information Social History [...]
--- OUTSIDE RECORDS SUMMARY | 2024-06-17 02:34 | XMS_ITS | Clinical Summary ---
Author Organization [facility] Address [address] [place] [address] Care Team Providers Care Genetics Teacher Name Role Phone Peter Velazquez MD Primary Care Provider [phone] Allergies Active Allergy Reactions Criticality Noted Date [...] on file Legal Sex Female 4:18 AM PATIENT SAFETY MANAGER Gender Identity Not on file Sexual Orientation Not on file Obstetrics History Last Filed Vital Signs Vital Sign Reading Time Taken Comments Blood Pressure 113/77 01/18/2023 1:02 PM PATIENT SAFETY MANAGER Pulse 86 12/22/2022 8:21 AM PATIENT SAFETY MANAGER Temperature - - Respiratory Rate 16 12/22/2022 8:21 AM PATIENT SAFETY MANAGER Oxygen Saturation 96% 12/13/2022 9:13 AM CDT Inhaled Oxygen Concentration - - Weight 70.3 kg (155 lb) 12/22/2022 8:21 AM PATIENT SAFETY MANAGER Height 162.6 cm (5' 4 ) 12/22/2022 8:21 AM PATIENT SAFETY MANAGER Body Mass Index 26.61 12/22/2022 8:21 AM PATIENT SAFETY MANAGER Plan of Treatment Health Maintenance Due Date [...] 10/11/2010 Zoster Vaccine Completed 07/01/2022, 03/01/2022 Insurance [facility] Care Teams Genetics Teacher Relationship Specialty Start Date End Date Peter Velazquez MD [address] [address] [facility] - General 05/13/16
--- OUTSIDE RECORDS SUMMARY | 2024-06-17 02:34 | XMS_ITS | Clinical Summary ---
Author Organization [facility] Address [address] [place] [address] Care Team Providers Care Animal Control Officer Name Role Phone Unavailable Primary Care Provider Unavailabl e Source Comments [facility],non-owned Affiliates and Associated Physician Practices is amultiple site organization consisting of ambulatory clinics and hospital sitesin [place], [place], [place] and [place]. This disclosure is being madepursuant to the Care Everywhere program and may not contain all information available regarding this patient. Last updated 17.[facility] Allergies Active Allergy Reactions Criticality Noted Date [...] on file Legal Sex Female 6:52 PM TELECOMMUNICATIONS PROFESSIONAL Gender Identity Not on file Sexual Orientation Not on file Last Filed Vital Signs Vital Sign Reading Time Taken Comments Blood Pressure 110/68 02/20/2017 10:18 AM TELECOMMUNICATIONS PROFESSIONAL Pulse 90 02/20/2017 10:18 AM TELECOMMUNICATIONS PROFESSIONAL Temperature 36.9 C (98.4 F) 02/20/2017 10:18 AM TELECOMMUNICATIONS PROFESSIONAL Respiratory Rate 16 02/20/2017 10:18 AM TELECOMMUNICATIONS PROFESSIONAL Oxygen Saturation 96% 02/20/2017 10:18 AM TELECOMMUNICATIONS PROFESSIONAL Inhaled Oxygen Concentration - - Weight 68 kg (150 lb) 02/20/2017 10:18 AM TELECOMMUNICATIONS PROFESSIONAL Height 162.6 cm (5' 4 ) 02/20/2017 10:18 AM TELECOMMUNICATIONS PROFESSIONAL Body Mass Index 25.75 02/20/2017 10:18 AM TELECOMMUNICATIONS PROFESSIONAL Plan of Treatment Health Maintenance Due Date [...] patient's age to complete this topic Insurance [facility]
--- OUTSIDE RECORDS SUMMARY | 2024-06-17 02:34 | XMS_ITS | Referral Summary ---
Author Organization [facility] Address [address] [place] [address] Care Team Providers Care Materials Planner Name Role Phone Peter Velazquez MD Primary Care Provider [phone] Allergies Active Allergy Reactions Criticality Noted Date [...] on file Legal Sex Female 4:18 AM VENDOR MANAGEMENT CONSULTANT Gender Identity Not on file Sexual Orientation Not on file Last Filed Vital Signs Vital Sign Reading Time Taken Comments Blood Pressure 113/77 01/18/2023 1:02 PM VENDOR MANAGEMENT CONSULTANT Pulse 86 12/22/2022 8:21 AM VENDOR MANAGEMENT CONSULTANT Temperature - - Respiratory Rate 16 12/22/2022 8:21 AM VENDOR MANAGEMENT CONSULTANT Oxygen Saturation 96% 12/13/2022 9:13 AM CDT Inhaled Oxygen Concentration - - Weight 70.3 kg (155 lb) 12/22/2022 8:21 AM VENDOR MANAGEMENT CONSULTANT Height 162.6 cm (5' 4 ) 12/22/2022 8:21 AM VENDOR MANAGEMENT CONSULTANT Body Mass Index 26.61 12/22/2022 8:21 AM VENDOR MANAGEMENT CONSULTANT Plan of Treatment Not on file Insurance [facility] Care Teams Materials Planner Relationship Specialty Start Date End Date Peter Velazquez MD [address] [address] PCP - General 05/13/16
[2024-06-17] MEDS: ACETAMINOPHEN 500 MG TABLET 1000 MG PO (08:54)
--- NOTE | 2024-06-17 09:08 | WPDANESEPPF ---
Anes - Initial Pre Proc Eval Procedure: Operation Date: 06/17/24 10:00 Proposed Procedures p Left Knee Arthroscopy, Partial Meniscectomy, Proceed As Indicated - Jairo Lemus MD Date/Time: 06/17/24 09:08 Surgeon: Jairo Lemus MD Pre Op Diagnosis: left medial meniscal tear Patient Data Age: 63 Gender: F Height: 1.63 m Weight: 72 kg Last Vital Signs Temp 36.8 C 06/17/24 08:44 Pulse 79 06/17/24 08:44 BP 141/78 H 06/17/24 08:44 Pulse Ox 97 06/17/24 08:44 O2 Del Method Room Air 06/17/24 08:44 Allergies Allergy/AdvReac Type Severity Reaction Status Date / Time guaifenesin (From Entex LA) AdvReac Mild Hyperactive Verified 06/17/24 08:42 ibuprofen AdvReac Mild Other Verified 06/17/24 08:42 NSAIDS (Non-Steroidal AdvReac Mild Other Verified 06/17/24 08:42 Anti-Inflamma phenylephrine (From Entex LA) AdvReac Mild Hyperactive Verified 06/17/24 08:42 phenylpropanolamine (From AdvReac Mild Hyperactive Verified 06/17/24 08:42 Entex LA) Home Medications ?Medication ?Instructions ?Recorded ?Confirmed ?Type albuterol sulfate 90 mcg/actuation 2 puff inhalation Q4H PRN 07/16/19 06/04/24 Rx aerosol inhaler (Ventolin HFA) shortness of breath or wheezing #54 grams topiramate 50 mg tablet 50 mg PO BID 04/22/21 06/17/24 History levothyroxine 125 mcg tablet 125 mcg PO DAILY 05/23/22 06/17/24 History (Synthroid) magnesium oxide 500 mg PO BID 05/23/22 06/04/24 History valacyclovir 500 mg tablet See Rx Instructions .Route 09/06/23 06/17/24 Rx .COMPLEX #30 tabs atorvastatin 80 mg tablet 80 mg PO DAILY #30 tabs 10/24/23 06/04/24 Rx tramadol 50 mg tablet 50 mg PO Q6H PRN low back pain #60 11/23/23 06/04/24 Rx tabs omeprazole 20 mg capsule,delayed 20 mg PO BID 90 days #180 caps 01/08/24 06/04/24 Rx release fluticasone 250 mcg-salmeterol 50 1 inh inhalation BID 01/17/24 06/04/24 History mcg/dose blistr powdr for inhalation (Wixela Inhub) azelastine 137 mcg (0.1 %) nasal 1 spray intranasal DAILY PRN PRN 03/01/24 06/04/24 History spray baclofen 10 mg tablet 10 mg PO BID PRN muscle pain #60 05/13/24 06/04/24 Rx tabs hyoscyamine 0.15 mg tablet 0.15 mg PO DAILY 06/04/24 06/04/24 History Patient hx anesthesia problems: none Family hx anesthesia problems: none Results Review: All pre-operative results and documents have been reviewed as part of the pre-operative evaluation. 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 Urinary frequency Chronic pain of left knee (~06/2023) degenerative changes on x-ray and Zhang cyst on ultrasound November,. Elevated liver enzymes AST 28, ALT slightly elevated at 43 on 06/24/2023. 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 Family history of long QT syndrome (~11/24/22) Normal EKG 12/02/2022. Overweight (BMI 25.0-29.9) IBS (irritable bowel syndrome) Eczema forearms Weight gain, abnormal Contact dermatitis due to plant Arthritis Hyperthyroidism Wears glasses Collagenous colitis Chronic pain of left wrist BMI 26.0-26.9,adult Right knee DJD Depression Right knee pain Encounter to establish care BMI 29.0-29.9,adult Wound infection Cellulitis BMI 27.0-27.9,adult Chronic allergic rhinitis B12 deficiency Level normal at 1056 with hemoglobin 15.1 10/30/2021. Level normal at 1202 with hemoglobin 15.4 on 06/24/2023. Low back pain with left-sided sciatica GERD (gastroesophageal reflux disease) Post-surgical hypothyroidism Abdominal spasms Seasonal allergies Acute Crohn's disease Chronic headaches COPD (chronic obstructive pulmonary disease) Allergies Surgical History Surgical History History of rotator cuff surgery 2015, Dr. Leon History of hand surgery 2020, Dr. Keller H/O thyroidectomy (~2013) History of partial hysterectomy (~1996) History of appendectomy (~1978) Family History Family History Grandparent Diabetes mellitus Acute myocardial infarction Family history of dementia Mother Family history of malignant neoplasm of ovary Social History Social History Smoking packs per day: 1.5 Smoking cigarettes per day: 30.0 Years smoked: 45 Smoking pack-years: 67.50 Smoking status: Current every day smoker Tobacco type: cigarettes Additional smoking assessment comments: 1-1.5 packs a day for 45 years Alcohol intake: current Substance use: never Substance use type: does not use Do You Feel Safe in your Home?: Yes Lack of Transportation: No Lack of Food: Never True Current Housing: I Have Housing Concerned About Future Housing: No Difficulty Paying Gas/Electric Bills: No Difficulty Paying for Meds: No Currently Unemployed: No Education: High School Diploma/GED Difficulty w/ Childcare or Family Care: No Living arrangements: with family Occupation/Education: occupation 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 Informed Consent: The patient's anesthetic plan and its attendant risks and benefits were discussed with the patient/family/POA. Questions were solicited and answers provided to the satisfaction of the patient/family/POA.
--- NOTE | 2024-06-17 09:15 | WPDHPUPDATE1 ---
History and Physical Update Update Date/Time: 06/17/24 09:15 History and Physical has been reviewed, including an updated exam of the patient. There are NO changes in the patient's condition. Risks, benefits, and alternatives have been discussed and questions answered. Patient agrees to proceed with procedure.
[2024-06-17] MEDS: LACTATED RINGERS 1,000 ML 30 ML IV CONT ×2 (09:23→11:38)
[2024-06-17] MEDS: ceFAZolin 2 GM/D5W 50 ML 2 GM/50 ML BAG IVPB (10:03)
[2024-06-17] MEDS: LIDO 1%/EPINEPHRINE 1:100,000 50 ML VIAL 30 ML INFILTRATE (10:24)
--- NOTE | 2024-06-17 10:38 | W.PM.PROC2 ---
Procedure Note - Detailed Date of Procedure 06/17/24 Pre-op Diagnosis Left medial meniscal tear Post-op Diagnosis Same Procedure Performed LEFT knee arthroscopy with partial meniscectomy Surgeon Jairo Lemus MD Anesthesia General Indications Pain, Locking and Catching Description of Procedure Patient brought to operating room # 8. An anesthetic was administered. The knee was sterilely prepped and draped in the usual manner. Standard portals were used. Superior medial portal was used for the outflow cannula, inferior lateral portal was used for the scope, inferior medial portal was used for the instruments. Arthroscopy was performed, the patellar femoral joint degenerative changes. The medial compartment showed a complex tear. The lateral compartment showed fraying. The ACL was intact. Using baskets and alvin the meniscal tear was trimmed back to a stable base so the nothing further could be pulled into the joint. Any loose or delaminated fragments were gently trimmed to a stable base. She had grade 3 chondromalacia throughout most of the medial compartment. An awl was used to broach the cortex, hopefully to induce bleeding and cartilaginous on growth. At this point the instruments were withdrawn, sutures placed and patient left the operating room in satisfactory condition. Estimated Blood Loss 20 Drains No Packing No Pathology None sent Complications No immediate complications Condition Stable Disposition PACU [facility] Billing Surgery - Charge Forward: Surgery Billing ([id number] Scope, Partial Meniscectomy)
[2024-06-17] MEDS: fentaNYL CITRATE INJ (*CRX) 100 MCG/2 ML VIAL 25 MCG IV PUSH ×2 (11:10→11:20)
[2024-06-17] MEDS: oxyCODONE HCL (*CRX) 5 MG TAB IR PO (11:58)
== END 2024-06-17 12:39 | disposition home or self-care (01) ==
PROVIDERS: PCP Family Medicine; Visit Provider Orthopaedic Surgery
PROC: (CPT 29870; principal; 2024-06-17 10:00)
DX: S83.232A Complex tear of medial meniscus, current injury, left knee, initial encounter (principal); M94.262 Chondromalacia, left knee; M17.0 Bilateral primary osteoarthritis of knee; R35.0 Frequency of micturition; K58.9 Irritable bowel syndrome, unspecified; E05.90 Thyrotoxicosis, unspecified without thyrotoxic crisis or storm; F32.A Depression, unspecified; J31.0 Chronic rhinitis; E53.8 Deficiency of other specified B group vitamins; K21.9 Gastro-esophageal reflux disease without esophagitis; E89.0 Postprocedural hypothyroidism; R25.2 Cramp and spasm; R51.9 Headache, unspecified; J44.9 Chronic obstructive pulmonary disease, unspecified; H35.711 Central serous chorioretinopathy, right eye; G89.29 Other chronic pain; M25.562 Pain in left knee; M79.644 Pain in right finger(s); M25.532 Pain in left wrist; M54.42 Lumbago with sciatica, left side; K13.21 Leukoplakia of oral mucosa, including tongue; F17.210 Nicotine dependence, cigarettes, uncomplicated; X58.XXXA Exposure to other specified factors, initial encounter; Z79.51 Long term (current) use of inhaled steroids; Z79.891 Long term (current) use of opiate analgesic; Z98.890 Other specified postprocedural states; Z87.19 Personal history of other diseases of the digestive system; Z80.41 Family history of malignant neoplasm of ovary; Z82.49 Family history of ischemic heart disease and other diseases of the circulatory system
CPT/HCPCS: 29881; A9270; J0690; J1100; J2003; J2004; J2250; J2405; J2704; J3010; J7120